=== PATIENT | female | born 1990 | race Caucasian/White ===

== ENCOUNTER 2017-04-18 06:47 | Emergency (ER) | payer MEDICAID, OTHER ==
[~2017-04-18] VITALS: Ht 165.1 cm; Wt 78.5 kg
[~2017-04-18 06:47] MED LIST: DICY1TAB26 PO; MIREIUD IU; ZOFR4TAB3 SL
[2017-04-18 06:50] VITALS: BP 113/61; PULSE 81; RESP 16; TEMP 97.8; O2SAT 100
[2017-04-18] MEDS ORDERED: SODIUM CHLOR 0.9% 1000 ML INJ 1,000 ML IV SCH (07:07)
[2017-04-18 07:10] VITALS: RESP 17; O2SAT 99
[2017-04-18] MEDS ORDERED: KETOROLAC TROMETHAMINE 30 MG/ML (IVP) VIAL IVP ONE (07:15)
[2017-04-18] MEDS ORDERED: SODIUM CHLORIDE 0.9% FLUSH 10 ML FLUSH IV FLUSH PRN (07:15)
[2017-04-18] MEDS ORDERED: ONDANSETRON HCL 4 MG/2 ML VIAL IVP ONE (07:15)
--- NOTE | 2017-04-18 07:15 | PD ---
HPI Chief Complaint: Abdominal Pain Time Seen by Provider: 07:07 Travel History International Travel<30 days: No Contact w/Intl Traveler<30days: No Traveled to known affect area: No History of Present Illness HPI This is a 26-year-old female presents today with complaints of right lower quadrant pain since yesterday. The patient denies fevers, chills per she does report that she had the sensation of a bowel movement which exacerbated the pain. The patient reports no previous history of similar pain. She does report that she had her IUD removed secondary to ovarian issues. She was not sure whether she had cysts or not. The patient was also told that she may be prone to endometriosis. Patient denies any vaginal discharge. There is no dysuria urgency or frequency. She reports the pain in her right lower quadrant radiates to her back. There is no hematuria or dark-colored urine. She is sexually active but does not feel as though she is at this time. PFSH Past Medical History Medical History: Denies Significant Hx Immunizations Current: Yes Tetanus Vaccination: Unknown Influenza Vaccination: No ?: Not LMP: periguard removed approx 1 month ago : 2 Para: 1 Miscarriage: 1 : 0 Dilation and Curettage (D&C): Yes Past Surgical History Gynecologic Surgery: Yes (d&c in 2007) Social History Alcohol Use: No Tobacco Use: No Substance Use: No Allergies-Medications (Allergen,Severity, Reaction): Coded Allergies: No Known Allergies (Verified , 04/18/17) Reported Meds & Prescriptions Reported Meds & Active Scripts Active No Active Prescriptions or Reported Medications Review of Systems Except as stated in HPI: all other systems reviewed are Neg General / Constitutional: No: Fever, Chills HENT: No: Headaches, Lightheadedness Cardiovascular: No: Chest Pain or Discomfort, Irregular Rhythm Respiratory: No: Cough, Shortness of Breath Gastrointestinal: Positive: Abdominal Pain (right lower), No: Nausea, Vomiting , Diarrhea, Hematochezia, Constipation Genitourinary: No: Frequency, Dysuria, Incontinence, Discharge, Vaginal Bleeding Musculoskeletal: Positive: Pain (right lower abdominal pain radiating to her back.), No: Weakness Neurologic: No: Weakness, Dizziness Physical Exam Narrative GENERAL: Well-developed well-nourished female in no acute respiratory distress. SKIN: Focused skin assessment warm/dry. HEAD: Atraumatic. Normocephalic. EYES: No scleral icterus. No injection or drainage. ENT: Mucous membranes pink and moist. NECK: Trachea midline. Supple. CARDIOVASCULAR: Regular rate and rhythm. No murmur appreciated. RESPIRATORY: No accessory muscle use. Clear to auscultation. Breath sounds equal bilaterally. GASTROINTESTINAL: Abdomen soft, nondistended. Patient has subjective right lower quadrant tenderness to deep palpation. There is no rebound. MUSCULOSKELETAL: No obvious deformities. No clubbing. No cyanosis. No edema. NEUROLOGICAL: Awake and alert. No obvious cranial nerve deficits. Motor grossly within normal limits. Normal speech. PSYCHIATRIC: Appropriate mood and affect; insight and judgment normal. Data Data Last Documented VS Vital Signs Date Time Temp Pulse Resp B/P (MAP) Pulse Ox O2 Delivery O2 Flow Rate FiO2 04/18/17 09:16 97.8 81 16 101/63 (76) 99 Room Air Orders Orders Complete Blood Count With Diff (04/18/17 07:07) Comprehensive Metabolic Panel (04/18/17 07:07) Lipase (04/18/17 07:07) Urinalysis - C+S If Indicated (04/18/17 07:07) Ct Abd/Pel W Iv Contrast(Rout) (04/18/17 07:07) Iv Access Insert/Monitor (04/18/17 07:07) Ecg Monitoring (04/18/17 07:07) Oximetry (04/18/17 07:07) Ondansetron Inj (Zofran Inj) (04/18/17 07:15) Sodium Chlor 0.9% 1000 Ml Inj (Ns 1000 M (04/18/17 07:07) Sodium Chloride 0.9% Flush (Ns Flush) (04/18/17 07:15) Ketorolac Inj (Toradol Inj) (04/18/17 07:15) Ed Urine Pregnancytest Poc (04/18/17 07:07) Oral Contrast - Adult (04/18/17 07:29) Diatrizoate Liq ( Gastroview Liq) (04/18/17 07:42) Iohexol 350 Inj (Omnipaque 350 Inj) (04/18/17 09:00) Mandatory Outpatient Referral (04/18/17 10:52) Labs Laboratory Tests Test 04/18/17 07:12 White Blood Count 11.0 TH/MM3 Red Blood Count 4.14 MIL/MM3 Hemoglobin 12.7 GM/DL Hematocrit 37.0 % Mean Corpuscular Volume 89.4 FL Mean Corpuscular Hemoglobin 30.6 PG Mean Corpuscular Hemoglobin Concent 34.2 % Red Cell Distribution Width 12.8 % Platelet Count 131 TH/MM3 Mean Platelet Volume 9.1 FL Neutrophils (%) (Auto) 79.7 % Lymphocytes (%) (Auto) 13.5 % Monocytes (%) (Auto) 4.4 % Eosinophils (%) (Auto) 2.0 % Basophils (%) (Auto) 0.4 % Neutrophils # (Auto) 8.7 TH/MM3 Lymphocytes # (Auto) 1.5 TH/MM3 Monocytes # (Auto) 0.5 TH/MM3 Eosinophils # (Auto) 0.2 TH/MM3 Basophils # (Auto) 0.0 TH/MM3 CBC Comment DIFF FINAL Differential Comment Urine Color YELLOW Urine Turbidity HAZY Urine pH 5.0 Urine Specific [place] 1.021 Urine Protein NEG mg/dL Urine Glucose (UA) NEG mg/dL Urine Ketones NEG mg/dL Urine Occult Blood NEG Urine Nitrite NEG Urine Bilirubin NEG Urine Urobilinogen LESS THAN 2.0 MG/DL Urine Leukocyte Esterase NEG Urine RBC 2 /hpf Urine WBC 1 /hpf Urine Squamous Epithelial Cells 4 /hpf Microscopic Urinalysis Comment CULT NOT INDICATED Blood Urea Nitrogen 18 MG/DL Creatinine 0.91 MG/DL Random Glucose 90 MG/DL Total Protein 7.2 GM/DL Albumin 3.6 GM/DL Calcium Level 8.6 MG/DL Alkaline Phosphatase 55 U/L Aspartate Amino Transf (AST/SGOT) 10 U/L Alanine Aminotransferase (ALT/SGPT) 21 U/L Total Bilirubin 0.2 MG/DL Sodium Level 140 MEQ/L Potassium Level 4.2 MEQ/L Chloride Level 109 MEQ/L Carbon Dioxide Level 26.8 MEQ/L Anion Gap 4 MEQ/L Estimat Glomerular Filtration Rate 74 ML/MIN Lipase 124 U/L [facility] Medical Decision Making Medical Screen Exam Complete: Yes Emergency Medical Condition: Yes Differential Diagnosis Acute appendicitis versus ovarian cyst versus endometriosis versus diverticulitis Narrative Course This is a 26-year-old female presents with right lower quadrant pain. The patient denies any fevers, chills. White count was within normal limits. Urinalysis was within normal limits. The patient had a CT scan that shows no evidence of acute process. She did have a right ovarian cyst. I discussed that she may have had a ruptured cyst that is causing the pain. She is related to that. There'll be a mandatory consult placed for an outpatient [employer] consult. Diagnosis Primary Impression: Right lower quadrant abdominal pain Additional Impression: Unspecified ovarian cyst, right side Additional Instructions: Return if feeling worse. Ibuprofen for discomfort. Scripts No Active Prescriptions or Reported Meds Disposition: 01 DISCHARGE HOME Condition: Stable Emerson Allen MD Apr 18, 2017 07:15
[2017-04-18 07:29] VITALS: BP 108/59; PULSE 89; RESP 16; TEMP 97.8; O2SAT 100
[2017-04-18 07:42] LABS: AUTOMATED NEUTROPHIL # 8.7 TH/MM3 (1.8-7.7); BASOPHIL % 0.4 % (0.0-2.0); BLOOD, URINE NEG (NEG); COMMENT (UR) CULT NOT INDICATED; CULTURE IF INDICATED CULT NOT INDICATED; EOSINOPHIL # 0.2 TH/MM3 (0-0.4); GLUCOSE,URINE NEG (NEG); HEMO FLAGS DIFF FINAL; KETONE, URINE NEG (NEG); LYMPH % 13.5 % (9.0-44.0); LYMPHOCYTE # 1.5 TH/MM3 (1.0-4.8); MEAN CELL VOLUME 89.4 FL (80.0-100.0); MEAN CORPUSCULAR HEMOGLOBIN 30.6 PG (27.0-34.0); MEAN CORPUSCULAR HGB CONC 34.2 % (32.0-36.0); MONO % 4.4 % (0.0-8.0); NEUT % 79.7 % (16.0-70.0); NITRITE,URINE NEG (NEG); PLATELET COUNT 131 TH/MM3 (150-450); RED BLOOD COUNT 4.14 MIL/MM3 (4.00-5.30); RED CELL DISTRIBUTION WIDTH 12.8 % (11.6-17.2); SQUAMOUS EPITHELIAL CELL URINE 4 /hpf (0-5); URINE COLOR YELLOW (YELLW/STRAW)
[2017-04-18] MEDS ORDERED: DIATRIZOATE MEGLUM/DIATRIZOATE SOD 9 ML CUP ONE (07:42)
[2017-04-18 08:02] LABS: ANION GAP 4 MEQ/L (5-15); AST (GOT) 10 U/L (15-37); BICARBONATE 26.8 MEQ/L (21.0-32.0); BLOOD UREA NITROGEN 18 MG/DL (7-18); CHLORIDE 109 MEQ/L (98-107); GLOMERULAR FILTRATION RATE 74 ML/MIN (>89); POTASSIUM 4.2 MEQ/L (3.5-5.1); SODIUM (NA) 140 MEQ/L (136-145)
[2017-04-18 08:04] LABS: ALKALINE PHOSPHATASE 55 U/L (45-117); ALT (GPT) 21 U/L (10-53); TOTAL BILIRUBIN ADULT 0.2 MG/DL (0.2-1.0)
[2017-04-18] MEDS ORDERED: IOHEXOL 350 MG/ML 10 ML VIAL (for RAD DIAG) IVCONTRAST ONE (09:00)
[2017-04-18 09:16] VITALS: BP 101/63; PULSE 81; RESP 16; TEMP 97.8; O2SAT 99
--- NOTE | 2017-04-18 09:31 | RADRPT ---
EXAM DATE/TIME: 04/18/2017 08:48 [place] COMPARISON: No previous studies available for comparison. INDICATIONS : Right lower quadrant pain since this morning. IV CONTRAST: 95 cc Omnipaque 350 (iohexol) IV ORAL CONTRAST: Prescribed oral contrast ingested. RADIATION DOSE: 9.48 CTDIvol (mGy) MEDICAL HISTORY : None SURGICAL HISTORY : None. ENCOUNTER: Initial ACUITY: 1 day PAIN SCALE: 6/10 LOCATION: Right lower quadrant TECHNIQUE: Volumetric scanning of the abdomen and pelvis was performed. Using automated exposure control and ad justment of the mA and/or kV according to patient size, radiation dose was kept as low as reasonably achievable to obtain optimal diagnostic quality images. DICOM format image data is available electro nically for review and comparison. FINDINGS: LOWER LUNGS: The visualized lower lungs are clear. LIVER: Homogeneous density without lesion. There is no dilation of the biliary tree. No calcified gallston es. SPLEEN: Normal size without lesion. PANCREAS: Within normal limits. KIDNEYS: Normal in size and shape. There is no mass, stone or hydronephrosis. ADRENAL GLANDS: Within normal limits. VASCULAR: There is no aortic aneurysm. BOWEL/MESENTERY: The stomach, small bowel, and colon demonstrate no acute abnormality. There is no free intraperitone al air or fluid. Well-visualized appendix, normal. ABDOMINAL WALL: Within normal limits. RETROPERITONEUM: There is no lymphadenopathy. BLADDER: No wall thickening or mass. REPRODUCTIVE: 15 mm right ovarian cyst. No free fluid. INGUINAL: There is no lymphadenopathy or hernia. MUSCULOSKELETAL: Within normal limits for patient age. CONCLUSION: Small cyst of the right ovary. Otherwise negative CT of the abdomen and pelvis. Normal appendix. No f ree fluid. Crispin Barney MD on April 18, 2017 at 9:28 Board Certified Radiologist. This report was verified electronically.
[2017-04-18 11:20] VITALS: BP 108/77; TEMP 97.8
== END 2017-04-18 11:20 | disposition home or self-care (01) ==
LOC: NEPC 06:47
DX: R10.31 Right lower quadrant pain (principal); N83.201 Unspecified ovarian cyst, right side
CPT/HCPCS: 74177; 80053; 81001; 83690; 84703; 85025; 96361; 96374; 96375; 99285; J1885; J2405; J7030; Q9963; Q9967